=== PATIENT | female | born 1955 ===

== ENCOUNTER 2017-12-15 08:50 | Emergency (ER) | payer MEDICAID, OTHER ==
[2017-12-15 08:50] VITALS: BMI 36.6
[2017-12-15 08:59] VITALS: RESP 18
--- NOTE | 2017-12-15 09:40 | C.PDOC ---
History Of Present Illness 62-year-old female, presents to the emergency department with complaints of dizziness and headache since yesterday, associated with nausea and non-bloody/non-bilious vomiting. Patient states she has a Hx of kidney disease and was told by Dr Muro that she cannot take blood pressure medications. No other complaints at this time. Time Seen by Provider: 12/15/17 09:02 Chief Complaint (Nursing): Dizziness/Lightheaded History Per: Patient History/Exam Limitations: no limitations Past Medical History Reviewed: Historical Data, Nursing Documentation, Vital Signs Vital Signs: Last Vital Signs Temp 98.2 F 12/15/17 08:53 Pulse 68 12/15/17 08:53 Resp 18 12/15/17 08:53 BP 151/91 H 12/15/17 08:53 Pulse Ox 96 12/15/17 08:53 - Medical History PMH: Anxiety, Arthritis, Bronchitis, COPD, HIV, HTN, End Stage Renal Disease, Chronic Kidney Disease Surgical History: Appendectomy - [facility] Procedures CERVICAL LES CAUTERIZAT (07/04/14) CERVICAL LES DESTRUC NEC (07/04/14) Family History: States: No Known Family Hx - Social History Hx Tobacco Use: No Hx Alcohol Use: No Hx Substance Use: Yes - Immunization History Hx Tetanus Toxoid Vaccination: No Hx Influenza Vaccination: Yes Hx Pneumococcal Vaccination: Yes Review Of Systems Constitutional: Negative for: Fever Cardiovascular: Negative for: Chest Pain Respiratory: Negative for: Shortness of Breath Gastrointestinal: Positive for: Nausea, Vomiting Musculoskeletal: Negative for: Back Pain Skin: Negative for: Rash Neurological: Positive for: Dizziness. Negative for: Weakness, Numbness Physical Exam - Physical Exam Appears: Non-toxic, No Acute Distress Skin: Normal Color, Warm, Dry Head: Atraumatic, Normacephalic Eye(s): bilateral: Normal Inspection Nose: Normal Oral Mucosa: Moist Lips: Normal Appearing Neck: Normal ROM Cardiovascular: Rhythm Regular, No Murmur Respiratory: Normal Breath Sounds, No Accessory Muscle Use Gastrointestinal/Abdominal: Soft, No Tenderness, No Guarding, No Rebound Back: Normal Inspection Extremity: Normal ROM, No Deformity Neurological/Psych: Oriented x3, Normal Speech, Other (no focal deficit) ED Course And Treatment - Laboratory Results Result Diagrams: 12/15/17 11:26 12/15/17 11:26 O2 Sat by Pulse Oximetry: 96 - CT Scan/US ct head Other Rad Studies (CT/US): Read By Radiologist, Radiology Report Reviewed CT/US Interpretation: Accession No. : [id number]. Patient Name / ID : PER MACKENZIE / [id number]. Exam Date : 12/15/2017 10:13:44 ( Approved ). Study Comment : Sex / Age : F / 62Y. Creator : Maryann Nelson. Dictator : Lorrie Johns MD. Flute Teacher : Tail Dogger : Lorrie Johns MD. Approver2 : Report Date : 12/15/2017 10:31:45. My Comment : . Date of service: 12/15/2017. PROCEDURE: CT HEAD WITHOUT CONTRAST. HISTORY: Headache, dizziness, vomiting. COMPARISON: Images from noncontrast head CT performed 02/20/11. TECHNIQUE: Axial computed tomography images were obtained through the head/brain without intravenous contrast. Radiation dose: Total exam DLP = 1096.34 mGy-cm. This CT exam was performed using one or more of the following dose reduction techniques: Automated exposure control, adjustment of the mA and/or kV according to patient size, and/or use of iterative reconstruction technique. FINDINGS: HEMORRHAGE: No intracranial hemorrhage. BRAIN: Diffuse atrophy with prominence of the ventricles and sulci noted. No mass effect or edema. Intracranial atherosclerotic calcifications. Scattered periventricular and subcortical white matter hypodensities, which are nonspecific, but often seen with chronic microvascular ischemic disease. Please note that MRI with diffusion imaging is more sensitive in the detection of acute ischemic event. VENTRICLES: No hydrocephalus. CALVARIUM: Unremarkable. PARANASAL SINUSES: Mucosal thickening of the ethmoid air cells. MASTOID AIR CELLS: Unremarkable as visualized. No inflammatory changes. OTHER FINDINGS: None. IMPRESSION: Generalized atrophy. Nonspecific white matter changes. Mucosal thickening of the ethmoid air cells. Correlate clinically for sinusitis. Progress Note: Bloodwork, CT Head and UA ordered and reviewed. Patient treated w Bradley Burdick. On re-evaluation patient feels better, asymptomatic now, no neuro deficit. patient was instructed to f/u with her PMD within 1-2 days. Disposition - Disposition Disposition: HOME/ ROUTINE Disposition Time: 14:26 Condition: IMPROVED Additional Instructions: Follow up with PMD within 1-2 days. Return to ED if feel worse. Instructions: Headache, Adult Forms: [facility] (Serbian) - Clinical Impression Clinical Impression: Headache - Scribe Statement The provider has reviewed the documentation as recorded by the Scribe (Smooth Hickman) All medical record entries made by the Scribe were at my direction and personally dictated by me. I have reviewed the chart and agree that the record accurately reflects my personal performance of the history, physical exam, medical decision making, and the department course for this patient. I have also personally directed, reviewed, and agree with the discharge instructions and disposition.
[2017-12-15] MEDS ORDERED: Sodium Chloride 0.9% 500 ML IV STA (09:43)
[2017-12-15] MEDS ORDERED: Sodium Chloride 0.9% 500 ML IV ONE (10:13)
--- NOTE | 2017-12-15 10:48 | CT ---
Date of service: 12/15/2017 PROCEDURE: CT HEAD WITHOUT CONTRAST. HISTORY: Headache, dizziness, vomiting COMPARISON: Images from noncontrast head CT performed 02/20/11 TECHNIQUE: Axial computed tomography images were obtained through the head/brain without intravenous contrast. Radiation dose: Total exam DLP = 1096.34 mGy-cm. This CT exam was performed using one or more of the following dose reduction techniques: Automated exposure control, adjustment of the mA and/or kV according to patient size, and/or use of iterative reconstruction technique. FINDINGS: HEMORRHAGE: No intracranial hemorrhage. BRAIN: Diffuse atrophy with prominence of the ventricles and sulci noted. No mass effect or edema. Intracranial atherosclerotic calcifications. Scattered periventricular and subcortical white matter hypodensities, which are nonspecific, but often seen with chronic microvascular ischemic disease. Please note that MRI with diffusion imaging is more sensitive in the detection of acute ischemic event. VENTRICLES: No hydrocephalus. CALVARIUM: Unremarkable. PARANASAL SINUSES: Mucosal thickening of the ethmoid air cells. MASTOID AIR CELLS: Unremarkable as visualized. No inflammatory changes. OTHER FINDINGS: None. IMPRESSION: Generalized atrophy. Nonspecific white matter changes. Mucosal thickening of the ethmoid air cells. Correlate clinically for sinusitis.
[2017-12-15 11:34] LABS: EOS # 0.3 K/uL (0.0-0.7)
[2017-12-15 11:41] LABS: BASO # 0.1 K/uL (0.0-0.2); BASO % 0.7 % (0.0-2.0); EOS % 3.7 % (0.0-4.0); LYMPH # 2.9 K/uL (1.0-4.3); LYMPH % 33.5 % (20.0-40.0); MEAN CELL VOLUME 91.6 fL (81.0-99.0); MEAN CORPUSCULAR HEMOGLOBIN 30.5 pg (27.0-31.0); MEAN CORPUSCULAR HGB CONC 33.3 g/dL (33.0-37.0); MEAN PLATELET VOLUME 9.5 fL (7.2-11.7); MONO # 0.8 K/uL (0.0-0.8); MONO % 9.9 % (0.0-10.0); NEUT # 4.5 K/uL (1.8-7.0); NEUT % 52.2 % (50.0-75.0); NRBC % 0.1 % (0.0-2.0); RBC 3.94 Mil/uL (3.80-5.20); RED CELL DISTRIBUTION WIDTH 13.4 % (11.5-14.5); WHITE BLOOD COUNT 8.6 K/uL (4.8-10.8)
[2017-12-15 11:53] LABS: PROTHROMBIN TIME 11.3 SECONDS (9.7-12.2)
[2017-12-15 11:58] LABS: ALB/GLOB RATIO 1.1 (1.0-2.1); ALBUMIN 4.4 g/dL (3.5-5.0); ALT/SGPT 25 U/L (9-52); AST/SGOT 35 U/L (14-36); BLOOD UREA NITROGEN 40 mg/dL (7-17); CALCIUM 9.1 mg/dl (8.6-10.4); GFR NON-AFRICAN AMERICAN 23
[2017-12-15 12:32] LABS: SQUAMOUS EPITHIAL 1 /hpf (0-5); URINE BACTERIA FEW (<OCC); URINE BILIRUBIN NEGATIVE (NEGATIVE); URINE BLOOD NEGATIVE (NEGATIVE); URINE CLARITY Clear (Clear); URINE COLOR Yellow (YELLOW); URINE GLUCOSE (UA) NORMAL (Normal); URINE LEUKOCYTE ESTERASE 1+ Leu/uL (Negative); URINE PROTEIN 1+ mg/dL (NEGATIVE); URINE UROBILINOGEN NORMAL mg/dL (0.2-1.0)
[2017-12-15 12:33] LABS: CK-MB 1.28 ng/mL (0.0-3.38)
[2017-12-15 14:44] VITALS: BP 130/82; PULSE 80; TEMP 98.1
[2017-12-15 17:50] VITALS: O2SAT 96
--- NOTE | 2017-12-16 19:53 | CARD ---
APPROVED REPORT Date of service: 12/15/2017 EKG Measurement Heart [id number] <Conclusion> Normal sinus rhythm Possible Left atrial enlargement Left ventricular hypertrophy ST & T wave abnormality, consider anterolateral ischemia Prolonged QT Abnormal ECG
== END 2017-12-15 14:43 | disposition home or self-care (01) ==
LOC: C.ER 08:50
DX: R51 Headache (principal); I12.0 Hypertensive chronic kidney disease with stage 5 chronic kidney disease or end stage renal disease; N18.6 End stage renal disease
CPT/HCPCS: 70450; 80053; 81001; 82550; 82553; 83735; 84484; 85025; 85610; 85730; 93005; 96374; 99285; J2765; J7040

== ENCOUNTER 2018-07-06 14:16 | Emergency (ER) | payer OTHER ==
[2018-07-06 14:29] VITALS: BMI 32.1
--- NOTE | 2018-07-06 16:17 | RAD ---
Date of service: 07/06/2018 HISTORY: Chest pain COMPARISON: 10/06/2014. TECHNIQUE: Chest PA and lateral FINDINGS: LINES AND TUBES: None. LUNG AND PLEURA: The lungs are well inflated and clear. No pleural effusion or pneumothorax. HEART AND MEDIASTINUM: There is mild cardiomegaly. No aortic atherosclerotic calcifications present. The hilar and mediastinal contours are within normal limits. SKELETAL STRUCTURES: There are old fracture deformities in the right posterior 5th, 6th and 7th ribs. VISUALIZED UPPER ABDOMEN: Normal. OTHER FINDINGS: None. IMPRESSION: No active pulmonary disease.
--- NOTE | 2018-07-06 17:20 | C.PDOC ---
History Of Present Illness 62 y/o female with PMhx of stage 4 kidney disease, HIV (on ART with undetectable viral load), presents to the ER complaining of midsternal chest discomfort which has been present for the past 5 days. Patient states that she also has cough, sore throat, and headache. Patient denies radiation of pain, SOB, diaphoresis, sick contacts, fever, chills, nausea, vomiting, diarrhea, urinary symptoms, weakness. Time Seen by Provider: 07/06/18 15:24 Chief Complaint (Nursing): Chest Pain History Per: Patient History/Exam Limitations: no limitations Onset/Duration Of Symptoms: Days Current Symptoms Are (Timing): Still Present Severity: Moderate Past Medical History Reviewed: Historical Data, Nursing Documentation, Vital Signs Vital Signs: Last Vital Signs Temp 98.6 F 07/06/18 14:31 Pulse 61 07/06/18 14:31 Resp 20 07/06/18 14:31 BP 114/77 07/06/18 14:31 Pulse Ox 97 07/06/18 14:31 Primary Care Provider: Briseyda Mruo - Medical History PMH: Anxiety, Arthritis, Bronchitis, COPD, HIV, HTN, End Stage Renal Disease, Chronic Kidney Disease Surgical History: Appendectomy - [facility] Procedures CERVICAL LES CAUTERIZAT (07/04/14) CERVICAL LES DESTRUC NEC (07/04/14) Family History: States: No Known Family Hx - Social History Hx Tobacco Use: No Hx Alcohol Use: No Hx Substance Use: No - Immunization History Hx Tetanus Toxoid Vaccination: No Hx Influenza Vaccination: Yes Hx Pneumococcal Vaccination: Yes Review Of Systems Except As Marked, All Systems Reviewed And Found Negative. Constitutional: Negative for: Fever, Chills ENT: Positive for: Throat Pain Cardiovascular: Positive for: Chest Pain Respiratory: Positive for: Cough. Negative for: Shortness of Breath Gastrointestinal: Negative for: Nausea, Vomiting, Abdominal Pain Neurological: Positive for: Headache Physical Exam - Physical Exam Appears: Non-toxic, No Acute Distress Skin: Normal Color, Warm, Dry Head: Atraumatic, Normacephalic Eye(s): bilateral: PERRL, EOMI, right: Other (cloudy cornea (reports history of ocular shingles)), left: Normal Inspection Ear(s): Bilateral: Normal Oral Mucosa: Moist Throat: Erythema (mild tonsillar erythema), No Exudate Neck: Supple Lymphatic: No Adenopathy Cardiovascular: Rhythm Regular, Murmur (systolic) Respiratory: Normal Breath Sounds, No Rales, No Rhonchi, No Wheezing Gastrointestinal/Abdominal: Normal Exam, Soft, No Tenderness, No Guarding, No Rebound Neurological/Psych: Oriented x3, Normal Speech ED Course And Treatment - Laboratory Results Result Diagrams: 07/06/18 17:14 07/06/18 17:14 ECG Rhythm: Sinus Rhythm Interpretation Of ECG: Nonspecific T wave changes, borderline LVH Rate From EC O2 Sat by Pulse Oximetry: 97 (RA) Pulse Ox Interpretation: Normal - Other Rad CXR X-Ray: Viewed By Me, Read By Radiologist Interpretation: Date of service: 07/06/2018. HISTORY: Chest pain. COMPARISON: 10/06/2014. TECHNIQUE: Chest PA and lateral. FINDINGS: LINES AND TUBES: None. LUNG AND PLEURA: The lungs are well inflated and clear. No pleural effusion or pneumothorax. HEART AND MEDIASTINUM: There is mild cardiomegaly. No aortic atherosclerotic calcifications present. The hilar and mediastinal contours are within normal limits. SKELETAL STRUCTURES: There are old fracture deformities in the right posterior 5th, 6th and 7th ribs. VISUALIZED UPPER ABDOMEN: Normal. OTHER FINDINGS: None. IMPRESSION: No active pulmonary disease. Medical Decision Making Medical Decision Making: Plan: --Labs --UA --IV Fluids Updates: --CXR neg, bloodwork normal except reduced kidney function (at baseline, h/o CKD). Patient reassessed, no complaints at this time. Troponin neg. Constellation of symptoms consistent with viral URI. Will d/c home, follow up with PMD. Disposition Counseled Patient/Family Regarding: Studies Performed, Diagnosis, Need For Followup - Disposition Disposition: HOME/ ROUTINE Disposition Time: 18:45 Condition: GOOD Additional Instructions: Follow up with your PMD in 1 week, return to ED for worsening symptoms. Instructions: Viral Upper Respiratory Infection, Adult (DC) Forms: [employer] (Czech) - Clinical Impression Clinical Impression: Viral URI - PA / RAIL TRACK MAINTAINER / Resident Statement MD/DO has reviewed & agrees with the documentation as recorded. - Scribe Statement The provider has reviewed the documentation as recorded by the Leonor Haines Provider Attestation All medical record entries made by the Scribe were at my direction and p ersonally dictated by me. I have reviewed the chart and agree that the record accurately reflects my personal performance of the history, physical exam, medical decision making, and the department course for this patient. I have also personally directed, reviewed, and agree with the discharge instructions and disposition.
[2018-07-06 17:21] LABS: EOS # 0.5 K/uL (0.0-0.7); EOS % 9.3 % (0.0-4.0); HEMOGLOBIN 12.4 g/dL (11.0-16.0); LYMPH # 2.4 K/uL (1.0-4.3); MEAN CELL VOLUME 92.9 fL (81.0-99.0); MEAN CORPUSCULAR HEMOGLOBIN 29.9 pg (27.0-31.0); MEAN CORPUSCULAR HGB CONC 32.2 g/dL (33.0-37.0); MEAN PLATELET VOLUME 9.4 fL (7.2-11.7); MONO # 0.7 K/uL (0.0-0.8); NEUT # 1.4 K/uL (1.8-7.0); NEUT % 27.7 % (50.0-75.0); NRBC % 0.1 % (0.0-2.0); RBC 4.16 Mil/uL (3.80-5.20); RED CELL DISTRIBUTION WIDTH 12.9 % (11.5-14.5); WHITE BLOOD COUNT 5.1 K/uL (4.8-10.8)
[2018-07-06] MEDS ORDERED: Sodium Chloride 0.9% 1,000 ML IV ONE (17:23)
[2018-07-06 17:30] LABS: ALBUMIN 3.9 g/dL (3.5-5.0); ALT/SGPT 19 U/L (9-52); AST/SGOT 30 U/L (14-36); BLOOD UREA NITROGEN 30 mg/dL (7-17); CALCIUM 9.1 mg/dl (8.6-10.4); GFR NON-AFRICAN AMERICAN 19
[2018-07-06 19:28] LABS: SQUAMOUS EPITHIAL < 1 /hpf (0-5); URINE BILIRUBIN NEGATIVE (NEGATIVE); URINE BLOOD NEGATIVE (NEGATIVE); URINE CLARITY Clear (Clear); URINE COLOR Yellow (YELLOW); URINE GLUCOSE (UA) NORMAL (Normal); URINE LEUKOCYTE ESTERASE NEG Leu/uL (Negative); URINE PROTEIN NEGATIVE (NEGATIVE); URINE UROBILINOGEN NORMAL mg/dL (0.2-1.0)
[2018-07-06 19:37] VITALS: BP 142/76; PULSE 76; RESP 17; TEMP 98.4; O2SAT 98
== END 2018-07-06 19:12 | disposition home or self-care (01) ==
LOC: C.ER 14:16
DX: J06.9 Acute upper respiratory infection, unspecified (principal); I12.0 Hypertensive chronic kidney disease with stage 5 chronic kidney disease or end stage renal disease; N18.6 End stage renal disease; J44.9 Chronic obstructive pulmonary disease, unspecified